=== PATIENT | male | born 1995 | race Caucasian/White ===

== ENCOUNTER 2019-05-29 16:13 | Emergency (ER) | payer OTHER ==
--- NOTE | 2019-05-29 17:57 | ED Physician Documentation ---
PD HPI LOWER EXT INJURY - Stated complaint Stated Complaint: RT FOOT PX - Chief complaint Chief Complaint: Ext Problem - History obtained from History obtained from: Patient - History of Present Illness PD HPI LOW EXT INJURY LOCATION: Right, Lower leg (lower achilles area), Ankle Type of injury: No: Fall, Twist Where injury occurred: Work Timing - onset: How many days ago (few) Timing - duration: Days Timing - details: Gradual onset (started hurting with walking and push off part of gait.) Improved by: Rest Worsened by: Moving Associated symptoms: No: Weakness, Numbness, Discolored Contributing factors: Other (no recent antibiotics.) Similar symptoms before: Has not had sx before Review of Systems Constitutional: denies: Fever, Chills Skin: denies: Rash Musculoskeletal: denies: Back pain Neurologic: denies: Focal weakness, Numbness PD PAST MEDICAL HISTORY - Past Medical History Past Medical History: No - Present Medications Home Medications: Ambulatory Orders Medication Instructions Recorded Confirmed Naproxen 500 mg PO BID #20 tablet 05/29/19 dexAMETHasone [Decadron] 4 mg PO DAILY #5 tablet 05/29/19 - Allergies Allergies/Adverse Reactions: Allergies Allergy/AdvReac Type Severity Reaction Status Date / Time No Known Drug Allergies Allergy Verified 05/29/19 18:26 PD ED PE NORMAL - Vitals Vital signs reviewed: Yes - General General: Alert and oriented X 3, No acute distress, Well developed/nourished - Derm Derm: Normal color, Warm and dry - Extremities Extremities: Other (right mid to lower achilless with tenderness. Firm tendon felt. There is crepitant feeling with ROM in the sheath area. The calcaneal insertion area is not tender. Foot plantar is not tender. Good ROM of the ankle. Hurts with passive dorsiflexion stretch. ) Results - Vitals Vitals: Vital Signs - 24 hr 05/29/19 05/29/19 16:26 18:49 Temperature 36.6 C 36.9 C Heart Rate 66 89 Respiratory 16 16 Rate Blood Pressure 131/81 H 129/91 H O2 Saturation 100 97 Oxygen O2 Source Room air PD MEDICAL DECISION MAKING - ED course Complexity details: considered differential (achilles tendonitis. ), d/w patient Departure - Departure Disposition: 01 Home, Self Care Clinical Impression: Achilles tendonitis Qualifiers: Laterality: right Qualified Code(s): M76.61 - Achilles tendinitis, right leg Condition: Stable Record reviewed to determine appropriate education?: Yes Instructions: Achilles Tendonitis Follow-Up: SRINIVASAN Bermeo [Provider Group] Prescriptions: dexAMETHasone [Decadron] 4 mg PO DAILY #5 tablet Naproxen 500 mg PO BID #20 tablet Comments: At the pharmacy or store you want to cook pickled meat a heel cushion or heel cup to provide a lift slightly of the heel to decrease the tension on the Achilles tendon just a little bit. Surprisingly that slight decrease in tension combined with some anti-inflammatories such as naproxen and Decadron are typically enough to allow this to heal up. Gentle range of motion of the ankle flex and extend when you are resting to keep the Achilles from stiffening up. However you want to do minimal flex and extend under weight (so when you are standing) so it does not stress on the Achilles. Minimal prolonged walking or standing for the next 3 to 5 days. No running jogging or jumping for 3 to 5 days as well. Recheck if not improved well over the next several days to week. Forms: Activity restrictions Discharge Date/Time: 05/29/19 18:50
[2019-05-29] MEDS ORDERED: CHERRY SYRUP 10 ML UDC PO ONE (18:19)
[2019-05-29] MEDS ORDERED: NAPROXEN 250 MG TABLET PO STA (18:19)
[2019-05-29] MEDS ORDERED: DEXAMETHASONE 10 MG/ML VIAL PO STA (18:19)
[2019-05-29 18:50] VITALS: BP 129/91
== END 2019-05-29 18:50 | disposition home or self-care (01) ==
LOC: ED 16:13
DX: M76.61 Achilles tendinitis, right leg (principal)
CPT/HCPCS: 99282; 99283; A9270